=== PATIENT | female | born 1985 | race Caucasian/White ===

== ENCOUNTER 2023-03-08 10:51 | Outpatient (CLI) | payer OTHER, SELFPAY ==
--- NOTE | 2023-03-08 11:00 | CRLHL7_ITS ---
For Patients: As a result of the Cures Act, medical imaging exams and procedure reports are released immediately into your electronic medical record. You may view this report before your referring provider. If you have questions, please contact your health care provider. INDICATION: First trimester scan, establish dates. COMPARISON: None. TECHNIQUE: Real-time underwood-scale imaging of the pelvis was performed. FINDINGS: Sonographic imaging demonstrates a single living intrauterine gestation. The embryo demonstrates a regular cardiac rate measuring 178 beats per minute. The embryo`s crown-rump length measurement of 2.5 cm corresponds to a gestational age of 9 weeks 2 days with a sonographic due date of 10/09/2023. There is a normal-appearing yolk sac. There are no gross abnormalities noted within the embryo at this early state of development. The gestational sac has a normal appearance. There is a lobulated perigestational hemorrhage measuring 0.9 x 2.0 x 2.7 cm in the upper right and 0.6 x 1.1 x 1.2 cm in the lower left. The amount of fluid within the sac appears appropriate for gestational age. The cervix is closed. The myometrium appears normal. The ovaries are of normal size. There are no suspicious fluid collections noted in the cul-de-sac. IMPRESSION: Normal first trimester OB ultrasound exam. Gestational age calculated single living intrauterine with sonographic gestational age 9 weeks 2 days and sonographic due date 10/09/2023. Lobulated subchorionic hemorrhage measuring 0.9 x 2.0 x 2.7 cm adjacent to the right upper gestational sac and measuring 0.6 x 1.1 x 1.2 cm adjacent to the lower left gestational sac. Dictated by Skyler Person MD @ 03/09/2023 6:46:18 AM (Electronically Signed)
== END 2023-03-08 10:52 | disposition home or self-care (01) ==
LOC: US 10:52
PROVIDERS: Visit Provider Advanced Practice Midwife
DX: Z34.91 Encounter for supervision of normal pregnancy, unspecified, first trimester (principal); O20.9 Hemorrhage in early pregnancy, unspecified; Z3A.09 9 weeks gestation of pregnancy
CPT/HCPCS: 76817; 82570; 84156; 84450; 84460; 86703; 86706; 86803; 86850; 86900; 86901; 87086; 87340

== ENCOUNTER 2023-03-08 12:05 | Outpatient (CLI) | payer OTHER, SELFPAY | END 2023-03-08 12:06 | disposition home or self-care (01) | PROVIDERS: PCP Advanced Practice Midwife; Visit Provider Advanced Practice Midwife | DX: Z87.59 Personal history of other complications of pregnancy, childbirth and the puerperium (principal); Z34.91 Encounter for supervision of normal pregnancy, unspecified, first trimester | CPT/HCPCS: 82570; 84156; 84450; 84460; 86592; 86703; 86704; 86706; 86762; 86787; 86803; 86850; 86900; 86901; 87086; 87340 ==

== ENCOUNTER 2023-07-05 12:51 | Outpatient (CLI) | payer OTHER, SELFPAY ==
--- NOTE | 2023-07-05 13:00 | US_ITS ---
Patient: RAPHAEL CANCINO Facility:?[facility] Patient ID:?[id number] Site Patient ID:?[id number]. Site :?[id number] Study:?US-OB Pelvis FOLLOW UP-07/05/2023 2:00:45 PM Ordering Physician:ANGELA PLATT Final Report: INDICATION: HYPOPLASTIC NASAL BONE DISCUSSED AT [facility] COMPARISON: 05/16/2023 TECHNIQUE: Real time underwood scale imaging of the fetus was performed. FINDINGS: Sonographic imaging demonstrates a single living intrauterine gestation. Fetus demonstrates a regular cardiac rate of 144 beats per minute. Fetus has a variable position. The placenta lies anterior fundal. Amniotic fluid volume appears normal and there is a single deepest vertical pocket: 6.4 cm. Normal nasal bone measuring 6.3 millimeters. Normal range at this age is 6.00 - 6.65 millimeters. IMPRESSION: Normal nasal bone. No hypoplasia. Dictated by Skyler Person MD @ 07/06/2023 8:58:34 AM Signed by:?Skyler Person MD @07/06/2023 8:58:34 AM (Electronic Signature)
== END 2023-07-05 12:52 | disposition home or self-care (01) ==
LOC: US 12:51
PROVIDERS: Visit Provider Advanced Practice Midwife
DX: O35.AXX0 Maternal care for other (suspected) fetal abnormality and damage, fetal facial anomalies, not applicable or unspecified (principal)
CPT/HCPCS: 76816; 82565; 82570; 84156; 84450; 84460; 87086

== ENCOUNTER 2023-07-19 14:22 | Outpatient (CLI) | payer OTHER, SELFPAY | END 2023-07-19 14:23 | disposition home or self-care (01) | LOC: NFLDREF 07-25 06:48 | PROVIDERS: Visit Provider Advanced Practice Midwife | DX: O09.522 Supervision of elderly multigravida, second trimester (principal); Z3A.27 27 weeks gestation of pregnancy | CPT/HCPCS: 86592 ==

== ENCOUNTER 2023-08-16 10:57 | Outpatient (CLI) | payer OTHER, SELFPAY ==
[2023-08-16 11:06] VITALS: BP 134/86; PULSE 110
[2023-08-16 11:20] VITALS: RESP 16; TEMP 36.9
[2023-08-16] MEDS: METOCLOPRAMIDE 10 MG TABLET PO (11:27)
[2023-08-16 11:31] VITALS: BP 128/79; PULSE 94
[2023-08-16 11:46] VITALS: BP 118/73; PULSE 94
[2023-08-16 12:01] VITALS: BP 116/74; PULSE 85
--- NOTE | 2023-08-16 13:43 | PC.OBNST ---
NST Note NST Note Start: 08/16/23 11:10 Freq: ONCE Status: Active Protocol: Document 08/16/23 13:41 CUDDYH (Rec: 08/16/23 13:42 CUDDYH [id number]) NST Note 3 Para (# of births) 2 EDC 10/12/23 Gestational Age In Weeks & Days 31 Weeks & 6 Days High Risk Factors High Blood Pressure - Gestational Reactive Yes Appropriate for Gestational Age Yes RN Cierra Ta RN Date 08/16/23 Reactive Yes Appropriate for Gestational Age Yes ZELDA Flores RNC Date 08/16/23 OB NST charge Yes Complete NST Note via Write Note Yes The provider's electronic signature indicates the NST is reactive/appropriate for gestational age. *Note to provider: If an addendum is required, open the patient's chart and click on the note under the Nurse/Allied Health tab.
== END 2023-08-16 12:15 | disposition home or self-care (01) ==
LOC: OB OUT 10:57 → OB 10:57
PROVIDERS: Visit Provider Advanced Practice Midwife
DX: O13.3 Gestational [pregnancy-induced] hypertension without significant proteinuria, third trimester (principal); Z3A.31 31 weeks gestation of pregnancy
CPT/HCPCS: 59025; G0463; A9270

== ENCOUNTER 2023-09-01 10:17 | Outpatient (CLI) | payer OTHER, SELFPAY | END 2023-09-01 10:18 | disposition home or self-care (01) | LOC: NFLDREF 09-02 09:31 | PROVIDERS: Visit Provider Advanced Practice Midwife | DX: O16.3 Unspecified maternal hypertension, third trimester (principal); O36.8130 Decreased fetal movements, third trimester, not applicable or unspecified; Z3A.34 34 weeks gestation of pregnancy | CPT/HCPCS: 82728 ==

== ENCOUNTER 2023-09-14 09:25 | Outpatient (CLI) | payer OTHER, SELFPAY | END 2023-09-14 09:26 | disposition home or self-care (01) | LOC: NFLDREF 09-16 11:35 | PROVIDERS: Visit Provider Advanced Practice Midwife | DX: O14.93 Unspecified pre-eclampsia, third trimester (principal) | CPT/HCPCS: 82565; 82570; 84156; 84450; 84460; 84520; 84550; 87081; 87653 ==

== ENCOUNTER 2023-09-15 09:16 | Outpatient (RCR) | payer OTHER, SELFPAY ==
--- NOTE | 2023-09-06 12:47 | PC.NURSE ---
Diagnosis: Iron deficiency anemia
--- NOTE | 2023-09-06 12:59 | URNOTE ---
Request received for authorization for?Infed ([id number]). Prior authorization is not required per [facility] Ref#[id number].
[2023-09-15 09:29] VITALS: BP 142/85; PULSE 91; RESP 16; TEMP 35.9; O2SAT 99
[2023-09-15] MEDS: IRON DEXTRAN COMPLEX 25 MG in 0.9 % SODIUM CHLORIDE 100 ml 100 ML 402 MG IVPB (10:05)
[2023-09-15 10:28] VITALS: BP 129/85; PULSE 84; RESP 16; TEMP 36.6; O2SAT 97
[2023-09-15] MEDS: IRON DEXTRAN COMPLEX 975 MG in 0.9 % SODIUM CHLORIDE 250 ml 250 ML 269.5 MG IVPB (11:41)
[2023-09-15 13:19] VITALS: BP 144/90; PULSE 79; RESP 18; TEMP 37; O2SAT 98
[2023-09-15 13:20] VITALS: BP 141/92; PULSE 72
--- NOTE | 2023-09-15 13:49 | ONC.NURNOTE ---
Quality Tech called triage at [facility] regarding pt's BP of 144/90 at completion of infed infusion. Pt states she was seen in the clinic yesterday and has had elevated BP's with previous . Per Haley NDIAYE, pt to be brought to labor and delivery for observation. Pt transferred by wheelchair.
== END 2024-03-13 23:59 | disposition home or self-care (01) ==
LOC: CCIC 09:16
PROVIDERS: Visit Provider Advanced Practice Midwife
DX: D50.9 Iron deficiency anemia, unspecified (principal)
CPT/HCPCS: 36415; 59025; 82565; 82570; 84156; 84450; 84460; 84520; 85027; 96365; 96376; G0463; J1750; J7050

== ENCOUNTER 2023-09-19 10:00 | Outpatient (CLI) | payer OTHER, SELFPAY | END 2023-09-19 10:01 | disposition home or self-care (01) | LOC: NFLDREF 10-06 11:14 | PROVIDERS: Visit Provider Advanced Practice Midwife | DX: O13.3 Gestational [pregnancy-induced] hypertension without significant proteinuria, third trimester (principal); Z3A.36 36 weeks gestation of pregnancy | CPT/HCPCS: 82570; 84156; 84450; 84460; 84520 ==

== ENCOUNTER 2023-09-19 11:10 | Outpatient (CLI) | payer OTHER, SELFPAY ==
[2023-09-19 11:43] VITALS: BP 128/89; PULSE 86; RESP 16; O2SAT 97
[2023-09-19 11:44] VITALS: PULSE 84; O2SAT 98
[2023-09-19 12:02] VITALS: BP 133/88; PULSE 84
[2023-09-19] MEDS: ACETAMINOPHEN 500 MG TABLET 1000 MG PO (12:04)
[2023-09-19 12:18] VITALS: BP 133/94; PULSE 96
[2023-09-19 12:33] VITALS: BP 137/97; PULSE 92
--- NOTE | 2023-09-19 12:36 | PC.OBNST ---
NST Note NST Note Start: 09/19/23 11:26 Freq: ONCE Status: Complete Protocol: Document 09/19/23 12:13 POT (Rec: 09/19/23 12:30 POT [id number]) NST Note 3 Para (# of births) 2 EDC 10/12/23 Gestational Age In Weeks & Days 36 Weeks & 5 Days High Risk Factors High Blood Pressure - Gestational,Advanced Maternal Age Patient Presented with Complaint(s) of Headache Reactive Yes Appropriate for Gestational Age Yes RN Mayuri Davis, RN Date 09/19/23 ZELDA Barrow RN Date 09/19/23 OB NST charge Yes Complete NST Note via Write Note Yes The provider's electronic signature indicates the NST is reactive/appropriate for gestational age. *Note to provider: If an addendum is required, open the patient's chart and click on the note under the Nurse/Allied Health tab.
[2023-09-19 12:48] VITALS: BP 138/91; PULSE 96
== END 2023-09-19 13:03 | disposition home or self-care (01) ==
LOC: OB OUT 11:10 → OB 11:11
PROVIDERS: Visit Provider Advanced Practice Midwife
DX: O16.3 Unspecified maternal hypertension, third trimester (principal); Z3A.36 36 weeks gestation of pregnancy
CPT/HCPCS: 59025; G0463; A9270

== ENCOUNTER 2023-09-21 07:01 | Inpatient (IN) | payer OTHER, SELFPAY ==
[2023-09-21] VITALS (15 sets, daily range): BP systolic 117–151; BP diastolic 63–92; PULSE 67–100; RESP 16; TEMP 36.7–37; O2SAT 98; BMI 35.2
[2023-09-21] MEDS: miSOPROStoL 25 MCG/0.25 TABLET VAGINAL (08:16)
--- NOTE | 2023-09-21 08:19 | P.LDBA_ITS ---
Subjective History of Present Illness Time Seen by Provider: 08:19 Date Seen: 09/21/23 Narrative: Patient is being admitted to Labor and Delivery for []. She is a 38 year old at weeks gestation. Her full history and physical was dictated by [] on []. Please see this for details. [] Specific Issues/Plans manager long term care boyfriend: Hang (don't live together, he has 2 kids) 1. Hx gestation HTN with 2nd . Starting ASA. 2. AMA Level II US: 05/16/23. Isolated hypoplastic nasal bone; No comment by MFM on report. Otherwise unremarkable. EFW 61%ile. F/U US: Normal nasal bone Genetic screening: Mat21 negative 3. GHTN this Planning IOL at 37 weeks twice weekly testing BPP/NST Weekly labs with urine Pap PP COVID: declines Flu: declines TDAP: 32wk Mental Health: 34wk hgb: OB Exam Physical Exam Vital signs: Temp Pulse Resp BP Pulse Ox 98.1 F 75 16 136/82 98 09/21/23 08:14 09/21/23 08:14 09/21/23 08:14 09/21/23 08:14 09/21/23 07:19
[2023-09-21 08:44] LABS: Basophils Percent Auto 0.2 % (0.0-3.0); Eosinophils Percent Auto 1.8 % (0.0-7.0); Hematocrit 30.2 % (33.0-51.0); Hemoglobin* 9.6 gm/dL (12.0-16.0); Immature Granulocytes Pct Auto 0.7 %; Lymphocytes Percent Auto 15.7 % (20-44); Mean Corpuscular HGB Conc 32 gm/dL (32-36); Mean Corpuscular Hemoglobin 27 pg (26-34); Mean Corpuscular Volume 85 fL (80-100); Monocytes Percent Auto 6.1 % (0.0-11.0); Neutrophils Percent Auto 75.5 % (42.0-72.0); Platelet Count* 233 K/uL (140-440); RDW Coefficient of Variation % 13.9 % (11.5-15.5); Red Blood Count 3.56 m/uL (4.00-5.20); White Blood Count* 12.21 K/uL (4.50-11.00)
[2023-09-21 08:55] LABS: Slide Review Reflex No
--- NOTE | 2023-09-21 10:22 | P.OBHP_ITS ---
OB - H&P: HPI Labor/Induction History of Present Illness Date Seen: 09/21/23 Chief Complaint: is a 38 year old 3 para 2 at 37.0 weeks gestation by uncertain LMP confirmed by 1st trimester U/S, who presents for IOL for gestational hypertension. She denies contractions prior to admit but is appreciating good movement. We discussed in dept options for induction including Pitocin, Cytotec, Cook catheter, and AROM. Cervix is posterior and difficult to reach so discussed that AROM and Cook are not great options at this time. We discussed risks and benefits of each and she would like to proceed with vaginal Cytotec over buccal Cytotec. Blood pressure normal so far. Labs were collected on Tuesday. Will plan to repeat labs with elevated blood pressures. 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 Hx gestation HTN with 2nd . Starting ASA. 2. AMA Level II US: 05/16/23. Isolated hypoplastic nasal bone; No comment by MFM on report. Otherwise unremarkable. EFW 61%ile. F/U US: Normal nasal bone Genetic screening: Mat21 negative 3. GHTN this Planning IOL at 37 weeks twice weekly testing BPP/NST Weekly labs with urine Pap PP COVID: declines Flu: declines TDAP: 32wk Mental Health: 34wk hgb: History of Present Dating criteria: based on LMP care: good care Ultrasounds: normal 1st trimester US and normal mid trimester US complications: gestational hypertension Medical complications: none Labs Blood type: A (+) positive Rubella: immune RPR/VDLR: nonreactive GBS status: negative HBsAG: negative Review of Systems Status of ROS: Reports: 6 or more systems reviewed and unremarkable except as noted in History and below Meds Home Medications and Allergies Home Medications ?Medication ?Instructions ?Recorded ?Confirmed ?Type vits no.126-ferrous fum 1 tab PO DAILY 03/08/23 09/21/23 History 28 mg iron-folic acid 800 mcg tablet (Classic ) cetirizine 10 mg capsule (Zyrtec) 10 mg PO QDAY PRN 04/05/23 09/21/23 History aspirin 81 mg tablet,delayed 81 mg PO QDAY 05/04/23 09/21/23 History release (Adult Low Dose Aspirin) Allergies Allergy/AdvReac Type Severity Reaction Status Date / Time penicillin V Allergy Mild Rash Verified 09/21/23 07:32 OB - H&P: Exam Physical Exam: Vital signs: Temp Pulse Resp BP Pulse Ox 98.1 F 80 16 146/88 H 98 09/21/23 10:13 09/21/23 10:13 09/21/23 10:13 09/21/23 10:13 09/21/23 07:19 Narrative: Psychiatric:? Alert and oriented x3? HEENT:? Normocephalic, atraumatic? Neck:? Supple without adenopathy or thyromegaly? Lungs:? Clear to auscultation bilaterally? Heart:? Regular rate and rhythm, no murmur, rub or gallop? Abdomen:? Soft, nontender, and gravid? Extremities:? No edema or erythema? OB - Results Labs Labs: Short CBC 09/21/23 Range/Units 08:40 WBC 12.21 H (4.50-11.00) K/uL Hgb 9.6 L (12.0-16.0) gm/dL Hct 30.2 L (33.0-51.0) % Plt Count 233 (140-440) K/uL OB - Problem Based A/P Additional Plan (1) Encounter for induction of labor: Status: Acute (2) Gestational hypertension: Status: Acute (3) Advanced maternal age (AMA) in : Status: Acute (4) Anemia: Status: Acute Plan ASSESSMENT:? at 37.0 weeks gestation? GBS negative? complicated by: gestational hypertension, anemia, AMA with normal anatomy scan and genetic screening? Medical IOL? Blood pressure normal on admit. ?? PLAN:? 1. Reviewed risks and benefits of IOL with pitocin vs cytotec. Pt prefers cytotec. Pitocin to follow if needed.? 2. Desires water . Consent signed. Hep C negative.? 3. Candidate for analgesia of choice. Planning unmedicated .? 4. Monitor blood pressures. Consider repeat labs with elevated readings.? 5. Anticipate .? 6. IV and monitoring per unit policy Delivery/Labor/Induction Plan Plan: induction Induction method: per misoprostol protocol
[2023-09-21] MEDS: LACTATED RINGERS 1000 ML 1,000 ML IV (14:59)
[2023-09-21] MEDS: OXYTOCIN 30 unit/500 ML in NS 30 UNIT/500 ML BAG IVPB (15:28)
[2023-09-21 16:45] LABS: Hematocrit 31.7 % (33.0-51.0); Mean Corpuscular HGB Conc 32 gm/dL (32-36); Mean Corpuscular Hemoglobin 27 pg (26-34); Mean Corpuscular Volume 85 fL (80-100); Platelet Count* 243 K/uL (140-440); Red Blood Count 3.71 m/uL (4.00-5.20); White Blood Count* 12.24 K/uL (4.50-11.00)
[2023-09-21 16:51] LABS: Slide Review Reflex No
--- NOTE | 2023-09-21 17:00 | P.OBPN_ITS ---
Subjective Time Seen by Provider: 14:00 Date Seen: 09/21/23 Narrative: received one dose of Cytotec after which she stared lillie every 2-3 minutes. Her next dose was held and her contractions continued and increased in intensity. She did have some late decelerations that resolved with position changes and an IV fluid bolus. A cervical exam was repeated and she was found to be unchanged but the cervix was now anterior instead of posterior as it was in her first exam. We discussed options for continuing her induction of expectant management, AROM, and Pitocin. I do not feel that an additional dose of Cytotec is appropriate at this time since her contractions picked so quickly after one dose. We discussed the risks and benefits of each. She would like to proceed with Pitocin titration per policy. She has had a few elevated blood pressures with the repeat checks normal. Labs were ordered and are pending at this time. Objective Vital Signs: Last Vital Signs Temp 98.3 F 09/21/23 16:05 Pulse 78 09/21/23 16:05 Resp 16 09/21/23 16:05 BP 142/88 H 09/21/23 16:05 Pulse Ox 98 09/21/23 07:19 Pelvic Exam Dilation (cm): 1 Effacement (%): 40 Station: high Contractions Monitor mode: External Contraction Frequency: 1-3 minutes Contraction pattern: Regular Contraction intensity: Strong/Firm (some moderate) Pitocin Rate (mU/min): 1 Assessment Assessment: induction ongoing Heart Rate Baseline: 135 Correction Variability: Moderate (6-25) Monitor Accelerations: Present Monitor Decelerations: None Plan Plan: ASSESSMENT:? at 37.0 weeks gestation? GBS negative? complicated by: gestational hypertension, anemia, AMA with normal anatomy scan and genetic screening? Medical IOL? Blood pressure slightly elevated, repeats normal. ?? PLAN:? 1. Reviewed risks and benefits of continuing IOL with Pitocin vs AROM. Pt prefers Pitocin. Consider AROM later if needed.? 2. Desires water . Consent signed. Hep C negative.? 3. Candidate for analgesia of choice. Planning unmedicated .? 4. Monitor blood pressures. Repeat repeat labs ordered.? 5. Anticipate .? 6. IV currently in place. 7. Continuous monitoring per unit policy with Pitocin titration.
[2023-09-21 17:05] LABS: Creatinine* 0.6 mg/dL (0.5-1.5); Est. Creatinine Clearance* 120.18; Estimated Glomerular Filt Rate 118 ml/min
[2023-09-21 17:06] LABS: Alanine Aminotransferase* 16 U/L (4-35); Aspartate Amino Transferase* 32 U/L (12-35); Blood Urea Nitrogen* 9 mg/dL (5-24)
[2023-09-21 18:37] LABS: Creatinine Urine 41.9 mg/dL; Protein Creatinine Ratio Urine 0.26 (0-0.19); Total Protein Urine 11 mg/dL
[2023-09-21] MEDS: LACTATED RINGERS 1000 ML 1,000 ML 122 ML IV (19:25)
[2023-09-21] MEDS: hydrOXYzine pamoate 25 MG CAPSULE 100 MG PO (22:21)
[2023-09-21] MEDS: MORPHINE 10 MG/ML inj IM (22:25)
[2023-09-21] MEDS: ONDANSETRON 2 MG/ML inj 4 MG IV (23:02)
--- NOTE | 2023-09-21 23:09 | PM.OBPNL ---
Subjective Time Seen by Provider: 22:30 Date Seen: 09/21/23 Narrative: has continued with Pitocin titration and was up to 6. She was feeling cramping and uncomfortable contractions but not pain or changes in how they were feeling. She requested a SVE which was performed by the RN and she was found to be unchanged. Discussed options for continuing with her induction including continuing Pitocin titration, AROM, Cook catheter. She was given a Pitocin break while contemplating and discussing with her partner. She decided to do the cook catheter which was placed with a speculum without difficulty. Initially 40mL was placed in each balloon and additional 20 was placed in each for a total of 60mL in each balloon. She tolerated the procedure well. Will consider adding low dose Pitocin after a few hours of placement. Objective Vital Signs: Last Vital Signs Temp 98.1 F 09/21/23 20:09 Pulse 83 09/21/23 20:09 Resp 16 09/21/23 20:09 BP 145/87 H 09/21/23 20:09 Pulse Ox 98 09/21/23 07:19 Pelvic Exam Dilation (cm): 1 Effacement (%): 50 Station: -3 Contractions Monitor mode: External Contraction Frequency: 3-4 Contraction pattern: Regular Contraction intensity: Moderate Pitocin Rate (mU/min): 0 Assessment Assessment: induction ongoing Status: Category l Heart Rate Baseline: 130 Mcfp Variability: Moderate (6-25) Monitor Accelerations: Present Monitor Decelerations: None Plan Plan: ASSESSMENT:? at 37.0 weeks gestation? GBS negative? complicated by: gestational hypertension, anemia, AMA with normal anatomy scan and genetic screening? Medical IOL? ?? PLAN:? 1. Reviewed risks and benefits of continuing IOL with Pitocin vs AROM vs Cook Catheter. Pt prefers Cook placement. Consider adding low dose Pitocin later if needed.? 2. Desires water . Consent signed. Hep C negative.? 3. Candidate for analgesia of choice. Planning unmedicated .? 4. Monitor blood pressures. Repeat repeat labs normal.? 5. Anticipate .? 6. IV currently in place. 7. Monitoring per unit policy with Cook catheter.
[2023-09-22] VITALS (49 sets, daily range): BP systolic 106–163; BP diastolic 58–97; PULSE 63–95; RESP 16; TEMP 36.6–37; O2SAT 91–100
--- NOTE | 2023-09-22 06:46 | PM.OBPNL ---
Subjective Time Seen by Provider: 06:15 Date Seen: 09/22/23 Narrative: received medication for therapeutic sleep over night and slept well for most of the night. Her cook fell out this morning and was found to be 4cm/70%/-2 per RN exam. She denies contractions this morning but is having some cramping. Discussed options for continuing IOL including Pitocin titration and expectant management. She is agreeable to Pitocin titration. She will shower and will restart Pitocin after she is ready for the day. Questions answered. Objective Vital Signs: Last Vital Signs Temp 97.9 F 09/22/23 03:59 Pulse 71 09/22/23 06:02 Resp 16 09/21/23 20:09 BP 113/58 L 09/22/23 06:02 Pulse Ox 98 09/21/23 07:19 Pelvic Exam Dilation (cm): 4 Effacement (%): 70 Station: -2 Contractions Monitor mode: External Contraction Frequency: 8-12 minutes Contraction pattern: Regular Contraction intensity: Moderate Pitocin Rate (mU/min): 0 Assessment Assessment: active labor Station: -2 Status: Category l Heart Rate Baseline: 120 Long-Term Variability: Moderate (6-25) Monitor Accelerations: Present Monitor Decelerations: None Plan Plan: ASSESSMENT:? at 37.0 weeks gestation? GBS negative? complicated by: gestational hypertension, anemia, AMA with normal anatomy scan and genetic screening? Medical IOL? ?? PLAN:? 1. Reviewed risks and benefits of continuing IOL with Pitocin vs expectant management. Pt agreeable to Pitocin titration.? 2. Desires water . Consent signed. Hep C negative.? 3. Candidate for analgesia of choice. Planning unmedicated .? 4. Monitor blood pressures. 5. Anticipate .? 6. IV currently in place. 7. Continuous monitoring per unit policy once Pitocin titration is initiated.
[2023-09-22] MEDS: OXYTOCIN 30 unit/500 ML in NS 30 UNIT/500 ML BAG IVPB (07:48)
[2023-09-22] MEDS: LACTATED RINGERS 1000 ML 1,000 ML 75 ML IV (07:49)
--- NOTE | 2023-09-22 12:39 | PM.OBPNL ---
Subjective Date Seen: 09/22/23 Narrative: ? is coping well with labor pain/contractions. ?Her family is with her for support. She has been changing positions, breathing and working on relaxation for comfort and pain management.?She was anxious to know if she has made cervical change. SVE was /-2 posterior cervix. We discussed some positioning that may help baby engage better, planning to do some side lying release then try flying cowgirl position to try get baby more engaged in the pelvis. She is agreeable to this plan is breathing through contractions at this time. Objective Exam: VSS, afebrile General Appearance:? Calm, cooperative. ?No acute distress. ? Psychiatric Exam: Alert and oriented, appropriate affect Abdomen: Gravid Ctx: ?Q 2-3 min apart. ? ? ?Strong FHTs: ?Baseline: 120. ? ? Variability: moderate. ?Accels: +. ? ?Decels: ?-. SVE: /-2 Membranes: Intact ? Vital Signs: Last Vital Signs Temp 97.8 F 09/22/23 11:54 Pulse 71 09/22/23 11:54 Resp 16 09/22/23 11:54 BP 146/78 H 09/22/23 11:54 Pulse Ox 98 09/21/23 07:19 Pelvic Exam Dilation (cm): 5 Effacement (%): 70 Station: -2 Contractions Monitor mode: External Contraction Frequency: 2-3 Contraction pattern: Regular Contraction intensity: Strong/Firm Pitocin Rate (mU/min): 10 Assessment Assessment: induction ongoing Station: -2 Status: Category l Heart Rate Baseline: 120 Monitor Accelerations: Present Monitor Decelerations: None Plan Plan: Assessment:?? at 37.1weeks gestation?? GBS neg Patient is coping well with challenges of labor.?? Labor type: Induced, Early labor? Category 1 FHR pattern.? complicated by: gestational hypertension, anemia, AMA with normal anatomy scan and genetic screening? Medical IOL? ?? PLAN:? 1. Reviewed risks and benefits of continuing IOL with Pitocin vs expectant management. Pt agreeable to Pitocin titration.? 2. Desires water . Consent signed. Hep C negative.? 3. Candidate for analgesia of choice. Planning unmedicated .? 4. Monitor blood pressures. 5. Anticipate .? 6. IV currently in place. 7. Continuous monitoring per unit policy with Pitocin titration ?
[2023-09-22] MEDS: ONDANSETRON 2 MG/ML inj 4 MG IV (14:28)
[2023-09-22] MEDS: LACTATED RINGERS 1000 ML 1,000 ML 999 ML IV (14:44)
[2023-09-22] MEDS: ROPIVACAINE 0.2% 100 ml 100 ML 12 MG EPIDURAL (15:23)
[2023-09-22] MEDS: LIDOCAINE 2% (PF) 5 ML VIAL EPIDURAL (15:24)
--- NOTE | 2023-09-22 15:57 | PM.OBPNL ---
Subjective Date Seen: 09/22/23 Narrative: ? is coping well with labor pain/contractions, she recently got an epidural for pain and is still feeling pressure. ?Her family is with her for support. ?She desired a cervical exam as she has a lot of pressure with contractions was found to be complete. Objective Exam: VSS, afebrile General Appearance:? Calm, cooperative. ?No acute distress. ? Psychiatric Exam: Alert and oriented, appropriate affect Abdomen: Gravid Ctx: ?Q 2-4 min apart. ?[Mild] ?[Moderate] ?[Strong] FHTs: ?Baseline: []. ? ? Variability: []. ?Accels: []. ? ?Decels: ?[]. SVE: [] Membranes: [Intact] ?[SROM ?AROM X hours] Vital Signs: Last Vital Signs Temp 97.8 F 09/22/23 11:54 Pulse 88 09/22/23 15:32 Resp 16 09/22/23 11:54 BP 134/73 09/22/23 15:32 Pulse Ox 98 09/22/23 15:54 Pelvic Exam Dilation (cm): 5 Effacement (%): 70 Station: -2 Contractions Monitor mode: External Contraction pattern: Regular Contraction intensity: Strong/Firm Pitocin Rate (mU/min): 10 Assessment Station: -2 Status: Category l Heart Rate Baseline: 120 Monitor Accelerations: Present Monitor Decelerations: None Plan Plan: Assessment:??G[ ] P[ ] at [ ] gestation?? GBS [] Patient is coping [] with challenges of labor.?? Labor type: [Induced/Spontaneous/Augmented], [Early/Active] labor? Category [1, 2, 3] FHR pattern.? complicated by: [] Labor complicated by: [ ]? Plan:?? [] [Antibiotic prophylaxis treatment per protocol] Continue with routine intrapartum cares as ordered.?? Patient encouraged to move and change positions to promote physiologic labor and .?? Nonpharmacologic comfort measures per patient preference. Candidate for analgesia of choice if desired. [Patient planning waterbirth] Anticipate progress to NVD. ?
[2023-09-22] MEDS: OXYTOCIN 30 unit/500 ML in NS 30 UNIT/500 ML BAG 300 UNIT IVPB (16:22)
--- NOTE | 2023-09-22 16:58 | W.PM.OBVAGDE ---
OB Procedure Vag Delivery Mother Details Mother Details: The patient is a 38 year-old, 3, Para 2, admitted on 09/21/23 at 37.1 weeks gestation. : 3 Para: 3 Weeks Gestation: 37.1 Admission Date: 09/21/23 Additional Details Amniotic Membrane Status: SROM Amniotic Membrane Rupture Date: 09/22/23 Amniotic Membrane Rupture Time: 14:48 Amniotic Membrane Fluid Description: Clear Analgesia/Anesthesia Type: Epidural Waterbirth: No Pitcoin: Yes Intrapartal Events: Labor Induction Induction Method: Intracervical balloon catheter, per misoprostol protocol and per pitocin protocol Labor Onset: 12:13 Complete: 15:46 Pushin:02 Heart: heart tones during second stage were Category II continuously monitored with variables and late decelerations with moderate variability. Delivery Details Delivery Date: 09/22/23 Delivery Time: 16:13 Route of delivery: Infant Gender: Male Infant Viability: Alive; Heart Rate Present Position at Delivery: OA Delivery Details: 38?y.o?at 37.1 weeks.? was induced at 37.0 weeks for gestational hypertension. She received Cytotec and made little change, then had a Cook catheter placed and rested overnight. Her Cook came out this morning and she was started on Pitocin and progressed normally. She requested an epidural for pain and had SROM during the placement. She then complained of increased pressure with contractions and an exam found her to be complete. She pushed in left tilt position effectively and delivered shortly after beginning to push. ? She became complete at 1546.??She pushed in left tilt positions effectively.? Spontaneous vaginal delivery at 1613 of?a viable?male infant.??Delivered in vertex OA position.??Shoulders delivered easily.? Spontaneous cry noted.??Infant placed on maternal abdomen.??Cord?was clamped and cut after a 5+ minute delay.??Nose and mouth were bulb suctioned.? Shoulder dystocia: no? Nuchal cord: yes times one? Meconium stained?fluid: no? Water : no? ? ? 5 at 1 minute and 7 at 5 minutes and 9 at 10 minutes? Weight 6lbs 13oz. . ? Placenta delivered spontaneously and?complete?at 1620 with a?3 vessel?cord.?? Bleeding controlled with fundal massage and?pitocin?for AMTSL.? ? Mother and infant were stable after delivery.? ? Lacerations:? right labial and periurethral tear bleeding and repaired with 3-0?vicryl.?Small abrasions to perineum otherwise intact. ? Bleeding?post delivery?was: minimal. ?The fundus was firm to palpation.? Blood loss: 150?mL.? Blood loss measurement type: QBL? ? ? Sponge,?lap?and needles counts are correct.? Mother and infant were stable after delivery.? 1 Minute Interval Total Score: 5 5 Minute Interval Total Score: 7 10 Minute Interval Total Score: 9 Additional Details Shoulder Dystocia: No Placenta Delivery Time: 16:20 Placental Delivery Description: Spontaneous Delivery repair: Vicryl Procedure Done: Global Blood Loss: 150 Laceration: Periurethral - 1st Degree (right labial and right periurethral) Blood Loss Measurement Type: QBL Bakri Used: No Sponge/Need Count Correct: Yes Cord Vessel Description: 3 Vessels, Nuchal Cord and Delivered through Event Summary Status: Mother and were stable after delivery. Disposition: floor
[2023-09-22] MEDS: IBUPROFEN 600 MG TABLET PO (20:40)
[2023-09-22] MEDS: ACETAMINOPHEN 500 MG TABLET 1000 MG PO (23:48)
[2023-09-22] MEDS: BENZOCAINE/MENTHOL SPRAY 85 GM AEROSOL 1 APPLIC TOPICAL (23:51)
[2023-09-23] MEDS: IBUPROFEN 600 MG TABLET PO ×2 (02:47→09:19)
[2023-09-23 04:00] VITALS: BP 126/89; PULSE 67; RESP 16; TEMP 36.8; O2SAT 98
[2023-09-23] MEDS: ACETAMINOPHEN 500 MG TABLET 1000 MG PO ×2 (05:52→12:19)
[2023-09-23 08:00] VITALS: BP 117/78; PULSE 81; RESP 16; TEMP 36.4; O2SAT 97
--- NOTE | 2023-09-23 10:23 | P.DS_ITS ---
DS: Providers Provider Date Seen: 09/23/23 Date of admission: 09/21/23 07:01 Primary care physician: Roseann Bartlett CNM Admitting Clinician: Roseann Bartlett CNM Attending Physician on discharge: Elgin Burks CNM, APRN DS: Diagnosis Discharge Diagnosis (1) Gestational hypertension: Status: Acute (2) Lactating mother: Status: Acute (3) care and examination immediately after delivery: Status: Acute Exam Narrative: Exam Narrative: GENERAL APPEARANCE:? normal affect, alert, no distress MOOD:? appropriate CHEST:? clear to auscultation HEART:? regular rate and rhythm ABDOMEN:? soft, non-tender the uterine fundus is At Umbilicus, Midline and is appropriate for the stage of recovery. PERINEUM:? mild edema of the perineum EXTREMITIES:? normal and no edema Const: Vital Signs, click to edit/add: Vital Signs - 24 hr 09/22/23 11:50 09/22/23 11:54 09/22/23 11:54 Temperature 97.8 F Pulse Rate 79 71 Pulse Rate [Pulse Oximeter] Respiratory Rate 16 Blood Pressure 155/81 H 146/78 H Blood Pressure [Ri ght Arm] Pulse Oximetry Oxygen Delivery Me thod 09/22/23 14:34 09/22/23 14:48 09/22/23 14:54 Temperature Pulse Rate 80 Pulse Rate [Pulse Oximeter] Respiratory Rate Blood Pressure 160/97 H Blood Pressure [Ri ght Arm] Pulse Oximetry 99 100 Oxygen Delivery Me thod 09/22/23 14:58 09/22/23 14:59 09/22/23 15:01 Temperature Pulse Rate 76 76 Pulse Rate [Pulse Oximeter] Respiratory Rate Blood Pressure 163/90 H 161/93 H Blood Pressure [Ri ght Arm] Pulse Oximetry 100 Oxygen Delivery Me thod 09/22/23 15:04 09/22/23 15:07 09/22/23 15:09 Temperature Pulse Rate 81 83 Pulse Rate [Pulse Oximeter] Respiratory Rate Blood Pressure 154/88 H 146/88 H Blood Pressure [Ri ght Arm] Pulse Oximetry 100 100 Oxygen Delivery Me thod 09/22/23 15:10 09/22/23 15:13 09/22/23 15:14 Temperature Pulse Rate 80 86 Pulse Rate [Pulse Oximeter] Respiratory Rate Blood Pressure 142/83 H 143/86 H Blood Pressure [Ri ght Arm] Pulse Oximetry 100 Oxygen Delivery Me thod 09/22/23 15:16 09/22/23 15:19 09/22/23 15:22 Temperature Pulse Rate 73 85 93 Pulse Rate [Pulse Oximeter] Respiratory Rate Blood Pressure 147/79 H 144/67 H 149/81 H Blood Pressure [Ri ght Arm] Pulse Oximetry 100 Oxygen Delivery Me thod 09/22/23 15:24 09/22/23 15:25 09/22/23 15:29 Temperature Pulse Rate 73 Pulse Rate [Pulse Oximeter] Respiratory Rate Blood Pressure 139/75 Blood Pressure [Ri ght Arm] Pulse Oximetry 100 98 Oxygen Delivery Ma thod 09/22/23 15:32 09/22/23 15:34 09/22/23 15:39 Temperature Pulse Rate 88 Pulse Rate [Pulse Oximeter] Respiratory Rate Blood Pressure 134/73 Blood Pressure [Ri ght Arm] Pulse Oximetry 97 98 Oxygen Delivery Ma thod 09/22/23 15:42 09/22/23 15:44 09/22/23 15:49 Temperature Pulse Rate Pulse Rate [Pulse Oximeter] Respiratory Rate Blood Pressure Blood Pressure [Ri ght Arm] Pulse Oximetry 91 98 98 Oxygen Delivery Ma thod 09/22/23 15:54 09/22/23 15:58 09/22/23 15:59 Temperature Pulse Rate 82 Pulse Rate [Pulse Oximeter] Respiratory Rate Blood Pressure 130/80 Blood Pressure [Ri ght Arm] Pulse Oximetry 98 98 Oxygen Delivery Ma thod 09/22/23 16:04 09/22/23 16:31 09/22/23 16:42 Temperature Pulse Rate 86 77 Pulse Rate [Pulse Oximeter] Respiratory Rate Blood Pressure 132/78 131/78 Blood Pressure [Ri ght Arm] Pulse Oximetry 97 Oxygen Delivery Ma thod 09/22/23 16:58 09/22/23 17:13 09/22/23 17:27 Temperature Pulse Rate 81 78 81 Pulse Rate [Pulse Oximeter] Respiratory Rate Blood Pressure 156/82 H 152/65 H 143/65 H Blood Pressure [Ri ght Arm] Pulse Oximetry Oxygen Delivery Ma thod 09/22/23 17:43 09/22/23 17:57 09/22/23 18:00 Temperature 98.6 F Pulse Rate 73 68 Pulse Rate [Pulse Oximeter] Respiratory Rate Blood Pressure 132/72 127/70 Blood Pressure [Ri ght Arm] Pulse Oximetry Oxygen Delivery Me thod 09/22/23 18:12 09/22/23 18:15 09/22/23 18:27 Temperature 98.6 F Pulse Rate 69 82 Pulse Rate [Pulse Oximeter] Respiratory Rate Blood Pressure 135/77 134/78 Blood Pressure [Ri ght Arm] Pulse Oximetry Oxygen Delivery Me thod 09/22/23 18:42 09/22/23 20:44 09/22/23 23:53 Temperature 98.3 F 98 F Pulse Rate 77 Pulse Rate [Pulse Oximeter] 83 Respiratory Rate 16 16 Blood Pressure 137/79 Blood Pressure [Ri ght Arm] 132/87 Pulse Oximetry 97 97 Oxygen Delivery Me thod Room Air Room Air 09/23/23 04:00 Temperature 98.3 F Pulse Rate Pulse Rate [Pulse Oximeter] 67 Respiratory Rate 16 Blood Pressure Blood Pressure [Ri ght Arm] 126/89 Pulse Oximetry 98 Oxygen Delivery Me thod Room Air OB - DS: Summary Hospital Course Hospital Course: The patient is a 38 year old G 3 P 3003 at 37w2d weeks gestation that was admitted to the Center on 09/21/23 for IOL for GHTN. She had an uncomplicated vaginal delivery. She delivered a viable male . She is breast feeding. the patient has done well. the patient has done well.? Vitals have been stable.? She has remained afebrile.? Has a good appetite, is tolerating a general diet. ?She is voiding without difficulty.? She is passing gas and has had a bowel movement.? She is ambulating and denies any dizziness.? Has small amount of rubra lochia. Problems: none plan: Discharge home with baby. Follow up in 2 weeks and 6 weeks. , may see if needed Hgb 10.0. GHTN diagnosed by elevated BP greater than 4 hours apart Labs WNL Discharge home with BP cuff if does not already have one Follow up in 3-5 days Call for signs/symptoms of preeclampsia Anticipate discharge after 7 pm this evening. Instructed patient that if she has any elevated BP prior to this evening, I would recommend continued monitoring overnight and discharge tomorrow morning. Peripartum Data delivery method: Vaginal Laceration description: Periurethral - 1st Degree Gender: Male Discharge Plan: Home Status at Discharge Functional status at discharge: independent ambulation Overall status at discharge: patient is progressing back to baseline Time Spent with Patient Time attestation: Total time spent providing and/or coordinating discharge services: Time spent: Less than 30 minutes Discharge Plan Discharge Disposition: Home, Self-Care Date of Admission: 09/21/23 07:01 Attending Provider on Discharge: Kiya Burks Primary Care Provider: Roseann Bartlett Condition: Stable Anticipated Discharge Date/Time: 09/23/23 19:00 Discharge Medications: New docusate sodium 100 mg Capsule 100 mg PO DAILY Qty: 90 0RF ibuprofen 600 mg Tablet 600 mg PO Q6H PRNQty: 60 0RF Continued Classic 28 mg iron- 800 mcg tablet 1 tab PO DAILY Zyrtec 10 mg capsule 10 mg PO QDAY PRN [id number] [Fioricet] 50-300-40 mg capsule 1 cap PO Q4-6H PRN (Reason: pain) Qty: 7 0RF metoclopramide HCl [Reglan] 10 mg tablet 10 mg PO Q6H PRN (Reason: headache) Qty: 20 0RF Hold Instructions: not needed Discontinued aspirin [Adult Low Dose Aspirin] 81 mg tablet,delayed release (DR/EC) 81 mg PO QDAY Discharge Orders: Discharge Order (Routine); Ordered 09/23/23 Ordered By: Kiya Burks Patient Education: OB Over the Counter Medication Information, OB Vaginal/Breast Feeding Additional Instructions: Discharge instructions were reviewed with the patient including signs and symptoms of infection and home going medications Nothing vaginally for 6 weeks: no tampons or intercourse Do not drive while taking narcotic pain medication(s) Off Work or School for 6 weeks Symptoms to report to doctor: * Bleeding that saturates more than one pad per hour * Passing clots larger than the size of a golf ball * Pain not relieved by prescribed medication * Fever above 100.4 degrees Fahrenheit * A foul vaginal odor * Difficulty in emotions, mood, and functions * Thoughts of hurting yourself and/or * Painful, reddened area in your breast * Any drainage, redness, or tenderness in your IV/epidural site * Severe headache that doesn't improve after taking medications * Changes in vision, including temporary loss of vision, blurred vision, and/or light sensitivity * Upper abdominal pain (usually under ribs on the right side) * Decrease in urination or painful, frequent urinating * Chest pain * Shortness of breath * Tenderness or pain with redness and/swelling in the calf(s) of your leg Follow [facility] for a BP check?3-5 days Call with BP greater than or equal to 160/110 2-week visit: discuss feeding concerns, review control options and screen for anxiety/depression. 6-week visit for an annual exam. consultation services are available to all mothers and babies for the first year after delivery.? To make an appointment, please call [phone]. Activity Level: Activity as Tolerated Discharge Diet: Regular Follow Up Appointments: [facility] [Provider Group] Forms: MyHealth Info Instructions
[2023-09-23] MEDS: DOCUSATE SODIUM 100 MG CAPSULE PO (10:52)
--- NOTE | 2023-09-23 12:14 | PM.ANPOST ---
Post Anesthesia Note Post Anesthesia Note Patient seen: Inpatient Respiratory Status: adequate Cardiovascular Status: adequate Mental Status: baseline Pain: adequate Temp: baseline Anesthetic awareness: N/A Complications: none Follow care: none
[2023-09-23 13:40] VITALS: BP 130/90; PULSE 81; RESP 16; TEMP 36.6; O2SAT 97
[2023-09-23 14:17] VITALS: BP 127/85
[2023-09-23 17:00] VITALS: BP 124/82; PULSE 78; RESP 17; TEMP 36.8; O2SAT 98
[2023-09-24 00:54] LABS: Rapid Plasma Reagin (RPR) Non Reactive (Non Reactive)
--- NOTE | 2023-10-03 14:16 | P.ANBPRC_ITS ---
[facility] Medical History (Updated 09/27/23 @ 00:00 by Emile Rodriguez) History of vaginal delivery -induced hypertension (05/20/12) ?O13.9 - Gestational [-induced] hypertension without significant proteinuria, unspecified trimester (ICD-10) Surgical History Hx of tonsillectomy ?Z90.89 - Acquired absence of other organs (ICD-10) Family History Father High blood pressure FH: testicular cancer Mother High blood pressure Depression PCOS (polycystic ovarian syndrome) Sister PCOS (polycystic ovarian syndrome) Paternal Grandmother High blood pressure Heart disease Blood clot in leg Social History Narrative: SOCIAL Education: bachelors Work: fabricator assembler metal products at [employer] Partner: Hang, long time BF (1.5 years), don't live together Lives with: kids (daughter 15, and son 10) Pets: 2 dogs Abuse: Denies past/present Special Diet: Denies Ok with a blood transfusion: yes Culture or synagogue beliefs: denies RISK FACTORS Exercise Times/wk: lifting, stationary biking and walking Depression/Anxiety: hx of and was on meds 5-6 years ago (didn't like how they made her feel). ISABELA: 2 PHQ 9: 0 Seat Belt Use: Routinely Smoking: Denies past/present Alcohol/day: Denies while Caffeine: rarely now Drug Use: Denies past/present Chicken Pox: Yes as a child MRSA: Denies What is your current living situation?: I presently have a place to live Problems where you live: no known problems In the past 12 months, utilities in danger of being shut off: no In past 12 months, lack of transportation kept you from medical appts, meetings, work, or getting things needed for daily living: no In the past 12 mos, have been you worried that your food would run out before y ou had money to buy more?: never true In the past 12 mos, the food you bought just didn't last and you didn't have money to buy more?: never true Smoking Status: Never smoker How often does anyone, including family, friends and others, physically hurt you : never How often does anyone, including family, friends and others, insult or talk down to you: never How often does anyone, including family, friends and others, threaten you with harm: never How often does anyone, including family, friends and others, scream or curse at you: never Little interest or pleasure in doing things: not at all Feeling down, depressed, or hopeless: not at all Meds Home Medications and Allergies Home Medications ?Medication ?Instructions ?Recorded ?Confirmed ?Type vits no.126-ferrous fum 1 tab PO DAILY 03/08/23 09/21/23 History 28 mg iron-folic acid 800 mcg tablet (Classic ) cetirizine 10 mg capsule (Zyrtec) 10 mg PO QDAY PRN 04/05/23 09/21/23 History Allergies Allergy/AdvReac Type Severity Reaction Status Date / Time penicillin V Allergy Mild Rash Verified 09/21/23 07:32 Results Vital Signs Vital Signs: Last Vital Signs Temp 98.3 F 09/23/23 17:00 Pulse 78 09/23/23 17:00 Resp 17 09/23/23 17:00 BP 124/82 09/23/23 17:00 Pulse Ox 98 09/23/23 17:00 O2 Del Method Room Air 09/23/23 13:40 Weight: 98.883 kg Height: 167.64 cm Anesthesia Procedures Epidural Insertion Patient Location: OB Start Time: 14:30 Stop Time: 15:30 Start Date: 09/22/23 Stop Date: 09/22/23 Reason for Block: procedure for pain Patient Position: sitting Performed By: Keegan Fontenot Preanesthetic Checklist: IV checked, risks and benefits discussed, monitors and equipment checked, pre-op evaluation, timeout performed and anesthesia consent Prep: chlorhexidine gluconate Monitoring: blood pressure monitoring, continuous pulse oximetry and heart rate Approach: midline Vertebral Space: lumbar (1-5) Epidural Technique: LYSSA saline Needle Type: Tuohy needle Injection Technique: continuous catheter Needle gauge: 17 Needle Length (cm): 10 cm Needle Insertion Depth (cm): 6 Catheter Gauge: 19 Catheter Type: multi-orifice Catheter at skin depth (cm): 12 Test Dose Result: negative and lidocaine 1.5% with epinephrine 1 to 200,000
== END 2023-09-23 18:10 | disposition home or self-care (01) | DRG 807 ==
PROVIDERS: Admitting Provider Advanced Practice Midwife; PCP Advanced Practice Midwife; Visit Provider Advanced Practice Midwife
DX: O13.4 Gestational [pregnancy-induced] hypertension without significant proteinuria, complicating childbirth (principal); Z37.0 Single live birth; O70.0 First degree perineal laceration during delivery; O76 Abnormality in fetal heart rate and rhythm complicating labor and delivery; O99.02 Anemia complicating childbirth; D64.9 Anemia, unspecified; Z3A.37 37 weeks gestation of pregnancy
CPT/HCPCS: 01967; 36415; 59025; 59200; 76815; 82565; 82570; 84156; 84450; 84460; 84520; 85025; 85027; 86592; 86850; 86900; 86901; G0463; A9270; C1726; J2270; J2371; J2405; J2795; J7120